=== PATIENT | male | born 1975 | race Caucasian/White ===

== ENCOUNTER 2020-03-07 20:57 | Emergency (ER) | payer BC ==
[2020-03-07 21:19] VITALS: TEMP 97.5
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
[2020-03-07] MEDS ORDERED: IBUPROFEN 200 MG TAB PO ONE (21:37)
[2020-03-07] MEDS ORDERED: traMADol HCL 50 MG TAB PO ONE (21:37)
[2020-03-07] MEDS ORDERED: METHOCARBAMOL 750 MG TAB PO ONE (21:37)
[2020-03-07 21:58] VITALS: BP 141/86; O2SAT 97
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
== END 2020-03-07 21:50 | disposition home or self-care (01) ==
LOC: ER 20:57
DX: S00.33XA Contusion of nose, initial encounter (principal); S16.1XXA Strain of muscle, fascia and tendon at neck level, initial encounter; S46.911A Strain of unspecified muscle, fascia and tendon at shoulder and upper arm level, right arm, initial encounter; W22.8XXA Striking against or struck by other objects, initial encounter; Y92.810 Car as the place of occurrence of the external cause